=== PATIENT | male | born 1985 | race Caucasian/White ===

== ENCOUNTER 2017-07-24 14:14 | Emergency (ER) | payer OTHER ==
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
[2017-07-24 18:02] VITALS: BP 117/93
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
== END 2017-07-24 18:01 | disposition home or self-care (01) ==
LOC: ED 14:14
DX: M54.12 Radiculopathy, cervical region (principal); S16.1XXA Strain of muscle, fascia and tendon at neck level, initial encounter; S09.90XA Unspecified injury of head, initial encounter; V47.5XXA Car driver injured in collision with fixed or stationary object in traffic accident, initial encounter; Y93.89 Activity, other specified; Y92.410 Unspecified street and highway as the place of occurrence of the external cause; R20.2 Paresthesia of skin
CPT/HCPCS: 70450; 72125; 99282